=== PATIENT | male | born 1980 | race Caucasian/White ===

== ENCOUNTER 2017-11-03 11:14 | Day surgery (SDC) | payer MEDICARE ==
[2017-11-03] MEDS: NS 1,000 ML IV (11:30)
[2017-11-03] MEDS ORDERED: LIDOCAINE 2% INJ 100 MG/5 ML SDV (FOR ANES.) As Ordered (12:17)
[2017-11-03] MEDS ORDERED: PROPOFOL 200 MG/20 ML VIAL As Ordered ×2 (12:17)
== END 2017-11-03 12:58 | disposition home or self-care (01) ==
LOC: M OPP 11:14
DX: Z12.11 Encounter for screening for malignant neoplasm of colon (principal); Z83.71 Family history of colonic polyps; E78.5 Hyperlipidemia, unspecified; K21.9 Gastro-esophageal reflux disease without esophagitis; R12 Heartburn; G35 Multiple sclerosis; F41.9 Anxiety disorder, unspecified; G47.30 Sleep apnea, unspecified; R06.83 Snoring; Z87.891 Personal history of nicotine dependence; Z79.899 Other long term (current) drug therapy; Z80.1 Family history of malignant neoplasm of trachea, bronchus and lung
CPT/HCPCS: G0105

== ENCOUNTER → 2019-09-16 | Outpatient (CLI) | payer MEDICARE ==
[~2019-09-16] MED LIST: ALPR0.5T3; ATOR40TA75; CIAL20TA; COPA1INJ; ESCI20TA; GABA-843; METH20TA29; MIRT15TA3; MODA100T13; OMEP40CA97; ZOLP10TA2
== END ==
LOC: M WUC 17:33
PROVIDERS: ATTEND Internal Medicine
DX: Z53.9 Procedure and treatment not carried out, unspecified reason (principal)

== ENCOUNTER → 2019-09-21 | Outpatient (CLI) | payer MEDICARE ==
--- NOTE | 2019-09-21 15:05 | REP ---
Clinical: Acute upper respiratory tract infection . Comparison: 07/20/2016 . Technique: PA and lateral. Findings: The mediastinum and cardiac silhouette are normal. The lung neal are clear and without acute consolidation, effusion, or pneumothorax. The skeletal structures are intact and normal. Impression: 1. No acute cardiopulmonary process. Electronically Signed by Binu Palma MD 09/21/2019 02:57 P
== END ==
LOC: M WUC 14:40
PROVIDERS: ATTEND Internal Medicine
DX: J06.9 Acute upper respiratory infection, unspecified (principal)

== ENCOUNTER 2019-10-07 23:19 | Emergency (ER) | payer MEDICARE ==
[~2019-10-07] VITALS: Ht 177.8 cm; Wt 145.4 kg
[2019-10-08 00:38] VITALS: BP 120/64
--- NOTE | 2019-10-08 01:12 | ECGEPIP ---
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
== END 2019-10-08 00:48 | disposition left against medical advice (07) ==
LOC: M ED 23:19
DX: R07.9 Chest pain, unspecified (principal); Z53.21 Procedure and treatment not carried out due to patient leaving prior to being seen by health care provider; K21.9 Gastro-esophageal reflux disease without esophagitis; E78.5 Hyperlipidemia, unspecified; F41.9 Anxiety disorder, unspecified; E66.9 Obesity, unspecified; Z79.899 Other long term (current) drug therapy

== ENCOUNTER 2020-09-10 22:30 | Emergency (ER) | payer MEDICARE ==
[~2020-09-10] VITALS: Ht 175.3 cm; Wt 158.9 kg
--- NOTE | 2020-09-11 00:54 | REPVR ---
PROCEDURE INFORMATION: Exam: US Duplex Right Lower Extremity Veins, Limited Exam date and time: 09/11/2020 12:38 AM Age: 40 years old Clinical indication: Edema, localized; Lower extremity, right; Additional info: Pain swelling and redness x2 days TECHNIQUE: Imaging protocol: Real-time Duplex ultrasound of the Right Lower Extremity with 2-D murillo scale, color Doppler flow and spectral waveform analysis with image documentation. Limited exam was focused on the right lower extremity veins. COMPARISON: No relevant prior studies available. FINDINGS: Right deep veins: Unremarkable. The common femoral, femoral, proximal profunda femoral and popliteal veins are patent without thrombus. Normal Doppler waveforms. Normal compressibility and/or augmentation response. Right superficial veins: Unremarkable. Saphenofemoral junction is patent without thrombus. Soft tissues: Unremarkable. IMPRESSION: No evidence of deep vein thrombosis. Electronically signed by: Juan Dennison On 09/11/2020 00:54:14 AM
[2020-09-11] MEDS ORDERED: cefTRIAXone SOD 1 GM in D5W MINI-BAG PLUS 50 ML IV ONE (01:15)
[2020-09-11] MEDS ORDERED: KETOROLAC 30 MG/ML 1ML VIAL IV ONE (01:15)
[2020-09-11 02:24] LABS: BASO # 0.1 10^3/uL (0.0-0.2); BASO % 0.5 % (0.0-1.0); EOS # 0.3 10^3/uL (0.0-0.5); EOS % 2.3 % (0.0-3.0); HEMATOCRIT 42.5 % (42.0-52.0); HEMOGLOBIN 12.6 g/dl (13.5-17.5); LYMPH # 3.6 10^3/uL (1.5-5.0); LYMPH % 24.4 % (24.0-44.0); MEAN CORPUSCULAR HEMOGLOBIN 25.6 pg (27.0-33.0); MEAN CORPUSCULAR HGB CONC 29.6 g/dl (32.0-36.5); MEAN CORPUSCULAR VOLUME 86.2 fl (80.0-96.0); MONO # 1.1 10^3/uL (0.0-0.8); MONO % 7.4 % (0.0-5.0); NEUTROPHILS # 9.5 10^3/uL (1.5-8.5); NEUTROPHILS % 64.7 % (36.0-66.0); PLATELET COUNT, AUTOMATED 267 10^3/uL (150-450); RED BLOOD COUNT 4.93 10^6/uL (4.30-6.10); WHITE BLOOD COUNT 14.7 10^3/uL (4.0-10.0)
[2020-09-11] MEDS ORDERED: KEFL500C17 PO (02:34)
[2020-09-11] MEDS ORDERED: METF500T13 PO (02:36)
[2020-09-11 02:44] LABS: ERYTHROCYTE SEDIMENTATION RATE 52 mm/hr (0-15)
[2020-09-11 02:47] VITALS: BP 141/81
== END 2020-09-11 02:50 | disposition home or self-care (01) ==
LOC: M ED 22:30
DX: L03.115 Cellulitis of right lower limb (principal); E11.9 Type 2 diabetes mellitus without complications; G35 Multiple sclerosis; Z87.891 Personal history of nicotine dependence; Z79.84 Long term (current) use of oral hypoglycemic drugs; Z79.899 Other long term (current) drug therapy
CPT/HCPCS: 80047; 85025; 85652; 86140; 87040; 93971; 96365; 96375; 99284; J0696; J1885

== ENCOUNTER → 2020-10-22 | Outpatient (CLI) | payer MEDICARE ==
[~2020-10-22] MED LIST changes: +KEFL500C17 PO; +METF500T13 PO
[2020-10-22 19:16] LABS: BASO # 0.1 10^3/uL (0.0-0.2); BASO % 0.7 % (0.0-1.0); EOS # 0.3 10^3/uL (0.0-0.5); EOS % 2.1 % (0.0-3.0); HEMATOCRIT 40.2 % (42.0-52.0); HEMOGLOBIN 11.9 g/dl (13.5-17.5); LYMPH # 3.4 10^3/uL (1.5-5.0); LYMPH % 27.6 % (24.0-44.0); MEAN CORPUSCULAR HEMOGLOBIN 25.4 pg (27.0-33.0); MEAN CORPUSCULAR HGB CONC 29.6 g/dl (32.0-36.5); MEAN CORPUSCULAR VOLUME 85.7 fl (80.0-96.0); MONO # 1.1 10^3/uL (0.0-0.8); MONO % 8.7 % (0.0-5.0); NEUTROPHILS # 7.4 10^3/uL (1.5-8.5); NEUTROPHILS % 60.3 % (36.0-66.0); PLATELET COUNT, AUTOMATED 313 10^3/uL (150-450); RED BLOOD COUNT 4.69 10^6/uL (4.30-6.10); WHITE BLOOD COUNT 12.2 10^3/uL (4.0-10.0)
[2020-10-22 19:58] LABS: ALBUMIN 3.2 GM/DL (3.2-5.2); ALT/SGPT 27 U/L (12-78); BILIRUBIN,TOTAL 0.4 MG/DL (0.2-1.0); BLOOD UREA NITROGEN 14 MG/DL (7-18); CALCIUM LEVEL 9.4 MG/DL (8.5-10.1); CARBON DIOXIDE LEVEL 33 MEQ/L (21-32); CHLORIDE LEVEL 101 MEQ/L (98-107); CREATININE FOR GFR 1.03 MG/DL (0.70-1.30); GLOMERULAR FILTRATION RATE > 60.0 (>60); GLUCOSE, FASTING 125 MG/DL (70-100); POTASSIUM SERUM 3.7 MEQ/L (3.5-5.1); SODIUM LEVEL 138 MEQ/L (136-145); THYROID STIMULATING HORMONE 0.848 uIU/ML (0.358-3.740); TOTAL 25(OH) VITAMIN D 11.8 NG/ML (30.0-100.0)
== END ==
LOC: M WUC 16:58
PROVIDERS: ATTEND Internal Medicine
DX: R53.83 Other fatigue (principal); Z79.899 Other long term (current) drug therapy

== ENCOUNTER → 2021-09-03 | Outpatient (CLI) | payer MEDICARE ==
[~2021-09-03] MED LIST changes: -ESCI20TA; +ESCI20TA16; +GABA-282; -GABA-843; +OMEP40CA4; -OMEP40CA97
[2021-09-03 16:44] LABS: BASO # 0.1 10^3/uL (0.0-0.2); BASO % 0.6 % (0.0-1.0); EOS # 0.3 10^3/uL (0.0-0.5); EOS % 1.9 % (0.0-3.0); HEMATOCRIT 46.1 % (42.0-52.0); HEMOGLOBIN 14.2 g/dl (13.5-17.5); LYMPH # 4.8 10^3/uL (1.5-5.0); LYMPH % 34.6 % (24.0-44.0); MEAN CORPUSCULAR HEMOGLOBIN 26.2 pg (27.0-33.0); MEAN CORPUSCULAR HGB CONC 30.8 g/dl (32.0-36.5); MEAN CORPUSCULAR VOLUME 85.2 fl (80.0-96.0); MONO # 0.9 10^3/uL (0.0-0.8); MONO % 6.6 % (2.0-8.0); NEUTROPHILS # 7.7 10^3/uL (1.5-8.5); NEUTROPHILS % 55.9 % (36.0-66.0); PLATELET COUNT, AUTOMATED 312 10^3/uL (150-450); RED BLOOD COUNT 5.41 10^6/uL (4.30-6.10); WHITE BLOOD COUNT 13.9 10^3/uL (4.0-10.0)
[2021-09-03 17:35] LABS: C REACTIVE PROTEIN QUANTITATIV 1.44 MG/DL (0.00-0.30); CHOLESTEROL RISK RATIO 6.105 (<5); TOTAL 25(OH) VITAMIN D 53.8 NG/ML (30.0-100.0)
[2021-09-03 17:58] LABS: MAU/CREAT RATIO 87.7 MCG/MG (0.0-30.0)
[2021-09-03 19:25] LABS: HEMOGLOBIN A1c 10.2 %
== END ==
LOC: M WUC 14:36
PROVIDERS: ATTEND Internal Medicine
DX: E11.65 Type 2 diabetes mellitus with hyperglycemia (principal); E78.49 Other hyperlipidemia; E55.9 Vitamin D deficiency, unspecified; R79.82 Elevated C-reactive protein (CRP); Z79.899 Other long term (current) drug therapy

== ENCOUNTER 2022-03-08 13:21 | Emergency (ER) | payer MEDICARE ==
[~2022-03-08] VITALS: Ht 175.3 cm; Wt 143.8 kg
[2022-03-08] MEDS ORDERED: FARX1TAB3 (13:36)
[2022-03-08] MEDS ORDERED: SYMB16INH (13:36)
[2022-03-08] MEDS ORDERED: METF-882 (13:36)
[2022-03-08] MEDS ORDERED: DOXY100T27 (13:36)
[2022-03-08] MEDS ORDERED: FURO20TA2 (13:36)
[2022-03-08] MEDS ORDERED: PRED10TA2 (13:36)
[2022-03-08] MEDS ORDERED: VITA1CAP25 (13:36)
[2022-03-08] MEDS ORDERED: BRIM0.2S13 (13:36)
[2022-03-08] MEDS ORDERED: MEDR4PAK PO (18:55)
[2022-03-08 19:26] VITALS: BP 130/86
== END 2022-03-08 19:28 | disposition home or self-care (01) ==
LOC: M ED 13:21
DX: R05.9 Cough, unspecified (principal); E11.9 Type 2 diabetes mellitus without complications; K21.9 Gastro-esophageal reflux disease without esophagitis; F12.10 Cannabis abuse, uncomplicated; Z79.899 Other long term (current) drug therapy

== ENCOUNTER → 2022-11-12 | Outpatient (CLI) | payer MEDICARE ==
[~2022-11-12] MED LIST changes: +BRIM0.2S13; +DOXY100T27; +FARX1TAB3; +FURO20TA2; +MEDR4PAK PO; +METF-882; +PRED10TA2; +SYMB16INH; +VITA1CAP25
== END ==
LOC: M RAD 08:07
PROVIDERS: ATTEND Internal Medicine
DX: R91.8 Other nonspecific abnormal finding of lung field (principal); K76.89 Other specified diseases of liver

== ENCOUNTER → 2025-03-07 | Outpatient (CLI) | payer MEDICARE ==
[~2025-03-07] MED LIST changes: +GABA-1172; -GABA-282
[2025-03-07 13:39] LABS: HEMATOCRIT 45.8 % (42.0-52.0); HEMOGLOBIN 14.6 g/dl (13.5-17.5); MEAN CORPUSCULAR HEMOGLOBIN 28.1 pg (27.0-33.0); MEAN CORPUSCULAR HGB CONC 31.9 g/dl (32.0-36.5); MEAN CORPUSCULAR VOLUME 88.1 fl (80.0-96.0); PLATELET COUNT, AUTOMATED 250 10^3/uL (150-450); WHITE BLOOD COUNT 8.9 10^3/uL (4.0-10.0)
[2025-03-07 13:40] LABS: PROSTATIC SPECIFIC AG MONITOR 1.38 NG/ML (< 4.00)
[2025-03-07 13:45] LABS: THYROXINE (T4) 6.5 UG/DL (4.5-10.9)
[2025-03-07 13:46] LABS: ESTRADIOL 45.7 PG/ML (<39.8); THYROID STIMULATING HORMONE 0.727 uIU/ML (0.55-4.78)
== END ==
LOC: M WUC 08:14
PROVIDERS: ATTEND Family Medicine
DX: E34.9 Endocrine disorder, unspecified (principal); D51.9 Vitamin B12 deficiency anemia, unspecified; E53.9 Vitamin B deficiency, unspecified; R53.83 Other fatigue; R53.81 Other malaise; E55.9 Vitamin D deficiency, unspecified; Z79.899 Other long term (current) drug therapy

== ENCOUNTER → 2025-09-05 | Outpatient (CLI) | payer MEDICARE ==
[~2025-09-05] MED LIST changes: +METF-728; -METF-882; +ZOLP10TA11; -ZOLP10TA2
[2025-09-05 18:42] LABS: PROSTATIC SPECIFIC AG MONITOR 0.95 NG/ML (< 4.00)
[2025-09-05 18:46] LABS: TESTOSTERONE 828.0 NG/DL (241-827)
== END ==
LOC: M WUC 15:42
PROVIDERS: ATTEND Internal Medicine
DX: E29.1 Testicular hypofunction (principal)